=== PATIENT | male | born 1960 | race Caucasian/White ===

== ENCOUNTER 2022-01-06 01:28 | Emergency (ER) | payer SELFPAY ==
[~2022-01-06] VITALS: Ht 185.4 cm; Wt 108.9 kg
[~2022-01-06 01:28] MED LIST: NAPROXEN; ZOCOR
--- NOTE | 2022-01-06 01:28 | NUR ---
PT BIB PD CHAIR A
[2022-01-06 01:40] VITALS: BP 152/86
[2022-01-06] MEDS ORDERED: KETOROLAC 60 MG/2 ML VIAL IM ONE (02:00)
--- NOTE | 2022-01-06 02:00 | NUR ---
61 Y/O MALE BIB PD HERE FOR PREBOOK EXAM. PT C/ CHRONIC KNEE AND BACK PAIN 01/24. A/OX4, GCS-15; UNLABORED BREATHING, SPEAKING IN FULL SENTENCES; AMBULATORY W/O ASSISTANCE; DENIES N/V/D, COUGH, SOB, CP, OR FEVER. SKIN PINK/WARM/DRY. HX: COPD NKA
[2022-01-06 02:17] VITALS: BP 140/80
--- NOTE | 2022-01-06 02:17 | NUR ---
Patient discharged with v/s stable. Written and verbal after care instructions given and explained. Patient verbalized understanding. Police with in custody. All questions addressed prior to discharge. Advised to follow up with PMD. VSS, A/OX4, UNLABORED BREATHING, AMBULATORY, AND CALM DEMEANOR. PATIENT [facility] POLICE DEPT. PATIENT EXAMINED BY DR. WARE. PATIENT MEDICALLY CLEARED AND RELEASED IN CUSTODY IN STABLE CONDITION. ORIGINAL PRE-BOOK FORM GIVEN TO OFFICER [place].
== END 2022-01-06 02:17 ==
LOC: MED 01:28
DX: M54.50 Low back pain, unspecified (principal); M25.562 Pain in left knee; J44.9 Chronic obstructive pulmonary disease, unspecified; F17.210 Nicotine dependence, cigarettes, uncomplicated; Z02.89 Encounter for other administrative examinations
CPT/HCPCS: 96372; 99283; J1885